=== PATIENT | male | born 1990 | race Caucasian/White ===

== ENCOUNTER 2017-06-07 15:26 | Emergency (ER) | payer OTHER, BC ==
[~2017-06-07] VITALS: Ht 170.2 cm; Wt 57.7 kg
[2017-06-07 15:52] VITALS: TEMP 36.8; Ht 170.2 cm; Wt 57.7 kg
[2017-06-07] MEDS ORDERED: RABIES IMMUNE GLOBULIN (HUMAN) 150 INTER.UNIT/ML 2 ML VIAL IM. ONE (16:15)
[2017-06-07] MEDS ORDERED: RABIES VACCINE (IMOVAX) HUMAN DIPL CELL 2.5 INTER.UNIT/ML SYR IM. ONE (16:15)
--- NOTE | 2017-06-07 17:54 | EMERGENCY ROOM VISIT NOTE ---
ED Visit Note First contact with patient: 15:56 CHIEF COMPLAINT: Dog bite HISTORY OF PRESENT ILLNESS: This 27-year-old male patient presents to the emergency department ambulatory for evaluation of a dog bite. 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 He reports that police spoke to the dog's top flavor attendant and were unable to confirm the dog's vaccination status. The patient was seen at [facility] prior to arriving here and had the wound cleaned and was prescribed Augmentin. His tetanus status is up to date. He rates his discomfort a 3/10. There is no active bleeding. REVIEW OF SYSTEMS: A 6 system review of systems was completed with positives and pertinent negatives listed in the HPI. ALLERGIES: No known drug allergies MEDICATIONS: No chronic medications PMH: No significant past medical history.. SOCIAL HISTORY: The patient lives locally with family.. PHYSICAL EXAM: Vital Signs: Reviewed Nurse's notes, vital signs stable. GENERAL : This is a 27-year-old male, in no acute distress, well-developed, well- nourished. HEAD: Atraumatic, without temporal or scalp tenderness. EYES: PERRLA, EOMI, no discharge or injection. SKIN: There are 2 puncture wounds to the right upper arm with no active bleeding. Capillary refill less than 2 seconds. NEUROLOGICAL: Alert and oriented to person place and time. Normal sensation to light and sharp touch. MUSCULOSKELETAL: Motor functions grossly intact of the right arm. Full range of motion. There is mild tenderness to the right upper arm over the puncture wounds. EMERGENCY DEPARTMENT COURSE: I examined the patient. The patient was given RIG 20 Units/kg. 1 mL of the immunoglobulin was infiltrated directly into the puncture wounds by myself. The patient was given Imovax 2.5 units IM. The patient was observed for 20 minutes with no reaction. The patient was discharged home in stable condition. Medication reconciliation: I attest that I have personally reviewed the patient 's current medication list. Blood pressure screening: Patient was found to have normal blood pressure on screening and does not require follow-up. DIAGNOSIS: Rabies prophylaxis Dog bite Problem List Medical Problems: (1) TBI (traumatic brain injury) Status: Resolved Current/Historical Medications No Active Prescriptions or Reported Meds Allergies Coded Allergies: No Known Allergies (Unverified , 06/07/17) Vital Signs Date Time Temp Pulse Resp B/P (MAP) Pulse Ox O2 Delivery O2 Flow Rate FiO2 06/07/17 18:37 69 18 110/64 99 06/07/17 17:43 63 18 116/65 100 Room Air 06/07/17 15:52 36.8 77 16 116/79 99 Room Air Medications Administered Medications (Trade) Dose Ordered Sig/Paul Route Start Time Stop Time Status Last Admin Dose Admin Rabies Immune Globulin (Imogam Rabies Inj) 1,150 interunit ONCE ONCE IM. 06/07/17 16:15 06/07/17 16:16 DC 06/07/17 16:15 1,150 INTERUNIT Rabies Vaccine Human Diploid Cell (Imovax Rabies) 2.5 interunit ONCE ONCE IM. 06/07/17 16:15 06/07/17 16:16 DC 06/07/17 16:15 2.5 INTERUNIT Departure Information Impression Primary Impression: Rabies, need for prophylactic vaccination against Additional Impression: Dog bite Dispostion Home / Self-Care Condition GOOD Prescriptions No Active Prescriptions or Reported Meds Referrals Jerman Pierson M.D.([facility]) (PCP) Patient Instructions My [facility] Additional Instructions Today is day 0. Return to the ER on days 3, 7, and 14 for subsequent vaccinations. Dates to return: 06/10/17 06/14/17 06/21/17 Follow the discharge instructions given to you by [facility]. Return sooner or follow up with your family doctor for signs of infection ( increased redness, discharge, fever) or for complications with the vaccine series. Problem Qualifiers Additional Impression: Dog bite Encounter type: initial encounter Qualified Codes: W54.0XXA - Bitten by dog , initial encounter
[2017-06-07 18:37] VITALS: BP 110/64; PULSE 69; O2SAT 99
== END 2017-06-07 18:37 | disposition home or self-care (01) ==
LOC: C.EDB 15:27 → C.EDD 18:37
DX: S41.151A Open bite of right upper arm, initial encounter (principal); W54.0XXA Bitten by dog, initial encounter; Y92.89 Other specified places as the place of occurrence of the external cause; Y99.0 Civilian activity done for income or pay; Z23 Encounter for immunization

== ENCOUNTER 2017-06-11 08:21 | Emergency (ER) | payer OTHER, BC ==
[~2017-06-11] VITALS: Ht 170.2 cm; Wt 56.7 kg
[2017-06-11 08:23] VITALS: TEMP 36.4; Ht 170.2 cm; Wt 56.7 kg
--- NOTE | 2017-06-11 08:28 | EMERGENCY ROOM VISIT NOTE ---
ED Visit Note First contact with patient: 08:26 CHIEF COMPLAINT: Rabies prophylaxis HISTORY OF PRESENT ILLNESS: This 27-year-old male patient presents to the emergency department ambulatory for their day 3 rabies shot. The patient has not had any complications from the previous injections. They deny any other complaints. REVIEW OF SYSTEMS: A 6 system review of systems was completed with positives and pertinent negatives listed in the HPI. ALLERGIES: No known drug allergies MEDICATIONS: Unchanged from previous PMH: Unchanged from previous visit. PHYSICAL EXAM: Vital Signs: Reviewed Nurse's notes, vital signs stable. GENERAL : This is a 27-year-old male, in no acute distress, well-developed, well- nourished. HEAD: Atraumatic, without temporal or scalp tenderness. EYES: PERRLA, EOMI, no discharge or injection. SKIN: Normal. NEUROLOGICAL: Alert and cooperative. Sensory and motor functions grossly intact. EMERGENCY DEPARTMENT COURSE: I examined the patient. The patient should have had his stay 3 doses yesterday. The patient states he was quite busy and could not get in here yesterday. I encouraged him to follow the designated schedule as closely as possible. The patient was given Imovax 1ml IM. The patient was observed for 20 minutes with no reaction. The patient was discharged home in stable condition. DIAGNOSIS: Rabies prophylaxis DISCHARGE INSTRUCTIONS: Continue vaccination schedule as directed. Return for any complications. Problem List Medical Problems: (1) TBI (traumatic brain injury) Status: Resolved Current/Historical Medications No Active Prescriptions or Reported Meds Allergies Coded Allergies: No Known Allergies (Unverified , 06/11/17) Vital Signs Date Time Temp Pulse Resp B/P (MAP) Pulse Ox O2 Delivery O2 Flow Rate FiO2 06/11/17 09:06 78 15 124/84 99 06/11/17 08:23 36.4 79 16 112/76 100 Room Air Medications Administered Medications (Trade) Dose Ordered Sig/Paul Route Start Time Stop Time Status Last Admin Dose Admin Rabies Vaccine Human Diploid Cell (Imovax Rabies) 2.5 interunit ONCE ONCE IM. 06/11/17 08:30 06/11/17 08:31 DC 06/11/17 08:37 2.5 INTERUNIT Departure Information Impression Primary Impression: Rabies, need for prophylactic vaccination against Dispostion Home / Self-Care Condition GOOD Prescriptions No Active Prescriptions or Reported Meds Referrals Jerman Pierson M.D. ([facility]) (PCP) Patient Instructions My [facility] Additional Instructions Continue vaccination schedule as directed. Return for any complications.
[2017-06-11] MEDS ORDERED: RABIES VACCINE (IMOVAX) HUMAN DIPL CELL 2.5 INTER.UNIT/ML SYR IM. ONE (08:30)
[2017-06-11 09:06] VITALS: BP 124/84; PULSE 78; O2SAT 99
== END 2017-06-11 09:07 | disposition home or self-care (01) ==
LOC: C.EDB 08:22
DX: Z20.3 Contact with and (suspected) exposure to rabies (principal); Z23 Encounter for immunization

== ENCOUNTER 2017-06-14 09:22 | Emergency (ER) | payer OTHER, BC ==
[~2017-06-14] VITALS: Ht 170.2 cm; Wt 57.2 kg
[2017-06-14 09:26] VITALS: TEMP 36.7; Ht 170.2 cm; Wt 57.2 kg
[2017-06-14] MEDS ORDERED: RABIES VACCINE (IMOVAX) HUMAN DIPL CELL 2.5 INTER.UNIT/ML SYR IM. ONE (09:45)
--- NOTE | 2017-06-14 09:46 | EMERGENCY ROOM VISIT NOTE ---
ED Visit Note First contact with patient: 09:33 CHIEF COMPLAINT: Rabies prophylaxis HISTORY OF PRESENT ILLNESS: This 27-year-old male patient presents to the emergency department, ambulatory, on day 7 for their 3rd rabies shot. The patient has not had any complications from the previous injections. They deny any other complaints. The patient did get his previous rabies vaccination 1 day late because he was busy. He states he is also only been taking Augmentin 1 time per day, because it makes him extremely fatigued. The patient states the initial dog bites on his right upper arm are healing well and had not been causing him any discomfort. REVIEW OF SYSTEMS: A 6 system review of systems was completed with positives and pertinent negatives listed in the HPI. ALLERGIES: None MEDICATIONS: Augmentin PMH: Unchanged from previous visit. PHYSICAL EXAM: Vital Signs: Reviewed Nurse's notes, vital signs stable. GENERAL : This is a 27-year-old male, in no acute distress, well-developed, well- nourished. HEAD: Atraumatic, without temporal or scalp tenderness. EYES: PERRLA, EOMI, no discharge or injection. SKIN: Normal. NEUROLOGICAL: Alert and cooperative. Sensory and motor functions grossly intact. SKIN: Several superficial wounds on the proximal right upper extremity. The wounds are scabbed over, without erythema, drainage, or significant tenderness on palpation. EMERGENCY DEPARTMENT COURSE: I examined the patient. The patient was given Imovax 1ml IM. The patient was observed for 20 minutes with no reaction. I discussed with the patient options for taking the Augmentin later in the day as opposed to first thing in the morning to help with fatigue. The patient was discharged home in stable condition. DIAGNOSIS: Rabies prophylaxis DISCHARGE INSTRUCTIONS: Continue vaccination schedule as directed. Return for any complications. Problem List Medical Problems: (1) TBI (traumatic brain injury) Status: Resolved Current/Historical Medications No Active Prescriptions or Reported Meds Allergies Coded Allergies: No Known Allergies (Unverified , 06/11/17) Vital Signs Date Time Temp Pulse Resp B/P (MAP) Pulse Ox O2 Delivery O2 Flow Rate FiO2 06/14/17 09:26 36.7 75 18 109/70 98 Room Air Departure Information Impression Primary Impression: Rabies, need for prophylactic vaccination against Additional Impression: Dog bite Dispostion Home / Self-Care Condition GOOD Prescriptions No Active Prescriptions or Reported Meds Referrals Jerman Pierson M.D. ([facility]) (PCP) Patient Instructions My [facility] Additional Instructions Continue vaccination schedule as directed. Return for any complications. Problem Qualifiers Additional Impression: Dog bite Encounter type: subsequent encounter Qualified Codes: W54.0XXD - Bitten by dog, subsequent encounter
[2017-06-14 10:08] VITALS: BP 105/61; PULSE 66; O2SAT 97
== END 2017-06-14 10:09 | disposition home or self-care (01) ==
LOC: C.EDB 09:22 → C.EDA 10:09
DX: Z20.3 Contact with and (suspected) exposure to rabies (principal); Z23 Encounter for immunization; W54.0XXD Bitten by dog, subsequent encounter; Z87.820 Personal history of traumatic brain injury

== ENCOUNTER 2017-06-21 17:47 | Emergency (ER) | payer OTHER, BC ==
[~2017-06-21] VITALS: Ht 170.2 cm; Wt 57.0 kg
[2017-06-21 17:51] VITALS: BP 103/68; PULSE 75; TEMP 36.9; O2SAT 99; Ht 170.2 cm; Wt 57.0 kg
[2017-06-21] MEDS ORDERED: RABIES VACCINE (IMOVAX) HUMAN DIPL CELL 2.5 INTER.UNIT/ML SYR IM. ONE (18:15)
--- NOTE | 2017-06-21 18:38 | EMERGENCY ROOM VISIT NOTE ---
ED Visit Note First contact with patient: 18:15 Chief Complaint: Rabies Return Visit History of Present Illness: This patient is a 27 year old male who presents to the Emergency Department via private vehicle for their last/final Rabies Vaccination Injections. The patient reports that they had no significant reaction to previous injection. Patient denies the development of any fevers, chills, sweats, or URI symptoms. Medications: Unchanged from previous visit. Allergies: None PMH: Unchanged from previous visit. SHx: Pt. is employed and lives locally. ROS: All pertinent positive and negative review of systems are appropriately documented in the History of Present Illness. Physical Exam: VITAL SIGNS - Vital signs and Nursing Notes were reviewed. Stable. GENERAL -27-year-old male, well-developed, well-nourished, and in no acute distress. SKIN - Without rashes or lesions. CARDIAC - RRR with normal S1 & S2. No murmurs, rubs, or gallops appreciated. RESPIRATORY - Clear to auscultation bilaterally. No wheezes, rales, or rhonchi appreciated. NEURO - Patient is A&Ox3 and communicates appropriately with the provider. ED Course: Previous ED visit note was reviewed by myself prior to patient evaluation. Patient reports no reaction to the previous injection(s). Patient received 2.5IU of Imovax intramuscularly. Patient was observed in the Emergency Department for greater than 20 minutes prior to discharge without signs of reaction. Patient was educated on worrisome symptoms for return visit to the Emergency Department. Patient discharged to home with the intent for follow-up in the Emergency Department as scheduled for the remainder of their injections. Problem List Medical Problems: (1) TBI (traumatic brain injury) Status: Resolved Current/Historical Medications No Active Prescriptions or Reported Meds Allergies Coded Allergies: No Known Allergies (Unverified , 06/21/17) Vital Signs Date Time Temp Pulse Resp B/P (MAP) Pulse Ox O2 Delivery O2 Flow Rate FiO2 06/21/17 17:51 36.9 75 15 103/68 99 Room Air Medications Administered Medications (Trade) Dose Ordered Sig/Paul Route Start Time Stop Time Status Last Admin Dose Admin Rabies Vaccine Human Diploid Cell (Imovax Rabies) 2.5 interunit ONCE ONCE IM. 06/21/17 18:15 06/21/17 18:16 DC 06/21/17 18:31 2.5 INTERUNIT Departure Information Impression Primary Impression: Rabies, need for prophylactic vaccination against Dispostion Home / Self-Care Condition GOOD Prescriptions No Active Prescriptions or Reported Meds Referrals No Doctor, Assigned (PCP) Patient Instructions My [facility] Additional Instructions You were seen in the Emergency Department today for your Rabies Prophylaxis Injection. Congratulations on completing the series! Return to the emergency department with any new/concerning symptoms.
== END 2017-06-21 18:48 | disposition home or self-care (01) ==
LOC: C.EDB 17:48 → C.EDD 18:48
DX: Z20.3 Contact with and (suspected) exposure to rabies (principal); Z23 Encounter for immunization